=== PATIENT | male | born 1990 | race Caucasian/White ===

== ENCOUNTER 2020-10-01 22:05 | Emergency (ER) | payer SELFPAY ==
[~2020-10-01] VITALS: Ht 180.3 cm; Wt 63.6 kg
[2020-10-01] MEDS ORDERED: BOOSTRIX/ADACEL VACCINE (DIPHTH/PERTUSS/ACELL/TETANUS) 0.5ML SYR IM ONE (22:15)
[2020-10-01] MEDS ORDERED: MORPHINE 4 MG/ML 1ML VIAL/SYRINGE (J2270) IV ONE (22:15)
[2020-10-01] MEDS ORDERED: OXYCODONE/APAP 5MG/325MG(BULK FOR ED) 1 TABLET PO ONE (23:10)
[2020-10-01] MEDS ORDERED: PERC5TAB12 PO (23:10)
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
[2020-10-01 23:30] VITALS: BP 144/91
== END 2020-10-01 23:41 | disposition home or self-care (01) ==
LOC: M ED 22:05
DX: S42.021A Displaced fracture of shaft of right clavicle, initial encounter for closed fracture (principal); V86.56XA Driver of dirt bike or motor/cross bike injured in nontraffic accident, initial encounter
CPT/HCPCS: 73000; 73030; 90471; 90715; 96374; 99284; J2270